=== PATIENT | female | born 1955 | race Caucasian/White ===

== ENCOUNTER 2022-02-01 14:41 | Outpatient (CLI) | payer MEDICARE | END 2022-02-01 14:42 | disposition home or self-care (01) | LOC: CSHMAMMO 14:41 | PROVIDERS: ATTEND Family Medicine | DX: Z12.31 Encounter for screening mammogram for malignant neoplasm of breast (principal); M85.89 Other specified disorders of bone density and structure, multiple sites; Z80.3 Family history of malignant neoplasm of breast; Z98.82 Breast implant status | CPT/HCPCS: 77063; 77067; 77080 ==

== ENCOUNTER 2025-06-07 09:01 | Outpatient (CLI) | payer MEDICARE | END 2025-06-07 09:02 | disposition home or self-care (01) | LOC: CSHMRI 09:01 | PROVIDERS: ATTEND Orthopaedic Surgery | DX: M23.91 Unspecified internal derangement of right knee (principal); S83.241A Other tear of medial meniscus, current injury, right knee, initial encounter; M17.11 Unilateral primary osteoarthritis, right knee; M84.461A Pathological fracture, right tibia, initial encounter for fracture ==